=== PATIENT | male | born 1975 | race Caucasian/White ===

== ENCOUNTER 2019-12-18 08:49 | Emergency (ER) | payer OTHER ==
[~2019-12-18] VITALS: Ht 170.2 cm; Wt 89.2 kg
[~2019-12-18 08:49] MED LIST: AMOX1TAB61 PO; IBUP800T19 PO
[2019-12-18] MEDS ORDERED: METH4TAB2 PO (09:25)
[2019-12-18] MEDS ORDERED: KETO5DRO72 OD (09:25)
--- NOTE | 2019-12-18 09:25 | PHYS DOC ---
Past History Past Medical History: Asthma, Diabetes, Other Past Surgical History: Tonsillectomy Alcohol Use: None Drug Use: None Adult General Chief Complaint Chief Complaint: VISION PROBLEM [facility] HPI Patient is a 44-year-old male who presents with complaint of right eye pain with some blurred vision as well as a tingling sensation into his face just below the eye, extending to just above the lip. He states that it feels kind of like pins and needles. He states that symptoms started about an hour and a half ago. He denies any injury to his eye and states that he is not aware of any foreign body in the eye. He denies headache. He denies any lateralizing weakness, facial droop or speech deficits.[] Review of Systems Review of Systems Constitutional: Denies fever or chills [] Eyes: Positive blurred vision and eye pain to right eye without discharge. [] HENT: Denies nasal congestion or sore throat [] Respiratory: Denies cough or shortness of breath [] Cardiovascular: No additional information not addressed in HPI [] Integument: Denies rash or skin lesions [] Neurologic: Denies headache, focal weakness. Positive numbness and tingling to right cheek, just below the right eye [] All other systems were reviewed and found to be within normal limits, except as documented in this note. Allergies Allergies Allergies Coded Allergies Type Severity Reaction Last Updated Verified No Known Drug Allergies 12/18/19 No Physical Exam Physical Exam Constitutional: Well developed, well nourished, no acute distress, non-toxic appearance. [] HENT: Normocephalic, atraumatic, bilateral external ears normal, oropharynx moist, no oral exudates, nose normal. [] Eyes: PERRLA, EOMI, conjunctiva normal, no discharge. Ophthalmoscopic exam is unremarkable with normal cup-to-disc ratio. [] Neck: Normal range of motion, no tenderness, supple. [] Cardiovascular: Regular rate and rhythm[] Lungs & Thorax: Bilateral breath sounds clear to auscultation [] Skin: Warm, dry, no erythema, no rash. [] Neurologic: Alert and oriented X 3, no focal deficits noted. [] EKG EKG [] Radiology/Procedures Radiology/Procedures [] Course & Med Decision Making Course & Med Decision Making Pertinent Labs and Imaging studies reviewed. (See chart for details) Patient moved to room upon arrival was evaluated by your medical staff. Differential diagnosis includes ocular migraine versus primary shingles/zoster outbreak versus sinusitis Dragon Disclaimer Dragon Disclaimer This electronic medical record was generated, in whole or in part, using a voice recognition dictation system. Departure Departure: Impression: Primary Impression: Blurred vision, right eye Disposition: HOME, SELF-CARE Condition: STABLE Referrals: DINA VELEZ DO (PCP) Patient Instructions: Eye - Blurred Vision Scripts Ketorolac Tromethamine (KETOROLAC TROMETHAMINE) 5 Ml Drops 1 DROP OD QID PRN for eye pain, #5 ML 0 Refills Prov: ANGELA SANDERSON Jr. DO 12/18/19 Methylprednisolone (MEDROL) 4 Mg Tab.ds.pk 1 PKG PO UD for inflammation, #1 PKG Prov: ANGELA SANDERSON Jr. DO 12/18/19 ANGELA SANDERSON Jr. DO Dec 18, 2019 09:25
[2019-12-18 09:30] VITALS: BP 139/98
== END 2019-12-18 09:33 | disposition home or self-care (01) ==
LOC: ER 08:49
DX: H53.8 Other visual disturbances (principal); H57.11 Ocular pain, right eye; J45.909 Unspecified asthma, uncomplicated; E11.9 Type 2 diabetes mellitus without complications
CPT/HCPCS: 99283

== ENCOUNTER → 2020-01-02 | Outpatient (CLI) | payer OTHER ==
[2019-12-18 09:30] VITALS: BP 139/98
[~2020-01-02] MED LIST changes: +KETO5DRO72 OD; +METH4TAB2 PO
--- NOTE | 2020-01-02 16:58 | RAD ---
Exam: CT head INDICATION: Migraine, right facial tingling TECHNIQUE: Sequential axial images through the head were obtained without the administration of IV contrast. Comparisons: None FINDINGS: No focal parenchymal lesion or hemorrhage is identified. There is no midline shift or sulcal effacement. No acute vascular territory infarction is identified. Daugherty-white distinction is preserved. The ventricular system is within normal limits without compression hydrocephalus. The basal cisterns are well maintained. The visualized portions of the paranasal sinuses and mastoid air cells are well-pneumatized. No acute fractures. IMPRESSION: No acute intracranial abnormality. Exposure: One or more of the following in the visualized dose reduction techniques were utilized for this examination: 1. Automated exposure control 2. Adjustment of the MA and/or KV according to patient size Use of iterative of reconstructive technique Electronically signed by: Abbie Lynn MD (01/02/2020 4:55 PM) [id number]
== END | disposition home or self-care (01) ==
LOC: PMG 16:31
PROVIDERS: ATTEND Family Medicine
DX: G43.909 Migraine, unspecified, not intractable, without status migrainosus (principal)
CPT/HCPCS: 70450

== ENCOUNTER → 2020-06-08 | Outpatient (CLI) | payer OTHER ==
--- NOTE | 2020-06-08 17:26 | RAD ---
3 view study of the fifth digit of the left hand Clinical indications: Fifth digit injury with pain. FINDINGS: No acute fracture or dislocation or lytic process is seen. There is a mild extension deformity of the DIP joint. This may be due to a flexor tendon injury. IMPRESSION: No acute fracture. Possible flexor tendon injury of the DIP joint. Electronically signed by: Zack Goodson MD (06/08/2020 5:23 PM) [id number]
== END ==
LOC: DXRAD 13:24
PROVIDERS: ATTEND Physician Assistant
DX: M20.022 Boutonniere deformity of left finger(s) (principal)
CPT/HCPCS: 73140